=== PATIENT | male | born 1960 | race Two or more races ===

== ENCOUNTER 2016-03-17 11:58 | Emergency (ER) | payer BC ==
[~2016-03-17] VITALS: Ht 170.2 cm; Wt 81.6 kg
[2016-03-17] MEDS ORDERED: LIDOCAINE 2%-EPI 1:100,000 30 ML VIAL ONE (12:09)
[2016-03-17] MEDS ORDERED: LIDOCAINE 1%-EPI 1:100,000 20 ML VIAL TP ONE (12:30)
[2016-03-17 13:58] VITALS: BP 132/78
== END 2016-03-17 14:08 | disposition home or self-care (01) ==
LOC: ER 12:00 → EDBD 12:00 → ER 14:08
DX: S01.81XA Laceration without foreign body of other part of head, initial encounter (principal); I10 Essential (primary) hypertension; W18.39XA Other fall on same level, initial encounter; Y93.89 Activity, other specified; Y92.89 Other specified places as the place of occurrence of the external cause; Y99.8 Other external cause status
CPT/HCPCS: 70450-TC; 72125-TC; A4606; A6402; A6403; J3490; Z7610